=== PATIENT | female | born 1990 | race Two or more races ===

== ENCOUNTER 2016-08-20 02:06 | Emergency (ER) | payer BC ==
[~2016-08-20] VITALS: Ht 162.6 cm; Wt 65.8 kg
[~2016-08-20 02:06] MED LIST: MULTIVITAMINS1 EA14 PO
--- NOTE | 2016-08-20 02:25 | Emergency Room Report ---
History of Present Illness General Chief Complaint: Substance Abuse Source: Patient Present Illness HPI Patient's friend contacted paramedics with reports of overdose on heroin and amphetamine Patient was found to be unresponsive and was given reportedly CPR by the friend Upon arrival of the paramedics patient was awake and responsive No further medication was given and patient brought to the emergency room At this time patient denies any homicidal or suicidal thoughts She reports accidental over ingestion Denies any chest pressures of breath denies any back or flank pain Allergies: Coded Allergies: No Known Allergies (Unverified , 08/20/16) Patient History Past Medical History: see triage record Pertinent Family History: none Last Menstrual Period: 08/18/16 Now: No : 0 Para: 0 Reviewed Nursing Documentation: PMH: Agreed, PSxH: Agreed Nursing Documentation-PMH History Of Psychiatric Problem: Yes - Anxiety, depression, ADHD Review of Systems All Other Systems: negative except mentioned in HPI Physical Exam Vital Signs Date Time Temp Pulse Resp B/P Pulse Ox O2 Delivery O2 Flow Rate FiO2 08/20/16 01:56 99.1 122 15 122/87 96 Room Air Sp02 EP Interpretation: reviewed, normal General Appearance: well appearing, no apparent distress Head: normocephalic, atraumatic Eyes: bilateral eye EOMI, bilateral eye PERRL ENT: hearing grossly normal, normal pharynx, TMs + canals normal, uvula midline Neck: full range of motion, supple, no meningismus, no bony tend Respiratory: lungs clear, normal breath sounds, no rhonchi, no respiratory distress, no retraction, no accessory muscle use Cardiovascular #1: normal peripheral pulses, regular rate, rhythm, no edema, no gallop, no JVD, no murmur Gastrointestinal: normal bowel sounds, non tender, soft, no mass, no organomegaly, non-distended, no guarding, no hernia, no pulsatile mass, no rebound Musculoskeletal: normal inspection Neurologic: oriented x3, responsive, prototype sewer III-XII nml as tested, motor strength/ tone normal, sensory intact Psychiatric: mood/affect normal - And patient denies any homicidal or suicidal thought Skin: normal color, no rash, warm/dry, palpation normal Lymphatic: normal inspection, no adenopathy Medical Decision Making Diagnostic Impression: Primary Impression: Substance abuse Additional Impressions: multidrug overdose Aspiration pneumonia ER Course Patient was observed in the ER Continues to do well Easily arousable Blood work is at baseline levels the patient is positive for multidrug ingestion Patient's friend is also here Patient and the friend continues to deny any homicidal type process and report accidental overdose Chest x-ray reveals questionable increased marking right lower lobe In line with possible aspiration given the patient's presentation She was placed on oral antibiotic Further observation was made patient continues to saturate well respirations are not labored the patient will have initial conservative outpatient trial Labs Test 08/20/16 02:20 White Blood Count 5.6 K/UL (4.8-10.8) Red Blood Count 3.63 M/UL (4.20-5.40) Hemoglobin 11.2 G/DL (12.0-16.0) Hematocrit 32.9 % (37.0-47.0) Mean Corpuscular Volume 91 FL (80-99) Mean Corpuscular Hemoglobin 31.0 PG (27.0-31.0) Mean Corpuscular Hemoglobin Concent 34.2 G/DL (32.0-36.0) Red Cell Distribution Width 10.5 % (11.6-14.8) Platelet Count 232 K/UL (150-450) Mean Platelet Volume 5.7 FL (6.5-10.1) Neutrophils (%) (Auto) 55.9 % (45.0-75.0) Lymphocytes (%) (Auto) 31.1 % (20.0-45.0) Monocytes (%) (Auto) 10.4 % (1.0-10.0) Eosinophils (%) (Auto) 2.0 % (0.0-3.0) Basophils (%) (Auto) 0.6 % (0.0-2.0) Urine HCG, Qualitative Negative Sodium Level 137 mEQ/L (135-145) Potassium Level 4.4 mEQ/L (3.4-4.9) Chloride Level 96 mEQ/L (98-107) Carbon Dioxide Level 28 mEQ/L (20-30) Anion Gap 13 (5-15) Blood Urea Nitrogen 6 mg/dL (7-23) Creatinine 0.7 mg/dL (0.5-0.9) Estimat Glomerular Filtration Rate > 60 mL/min (>60) Glucose Level 97 mg/dL (74-106) Calcium Level 8.7 mg/dL (8.6-10.2) Total Bilirubin < 0.2 mg/dL (0.0-1.2) Aspartate Amino Transf (AST/SGOT) 34 U/L (5-40) Alanine Aminotransferase (ALT/SGPT) 9 U/L (3-33) Alkaline Phosphatase 43 U/L (35-104) Total Protein 6.7 g/dL (6.6-8.7) Albumin 4.2 g/dL (3.5-5.2) Globulin 2.5 g/dL Albumin/Globulin Ratio 1.6 (1.0-2.7) Salicylates Level < 1 mg/dL (10-30) Urine Opiates Screen Positive (NEGATIVE) Acetaminophen Level < 10 ug/mL (10-30) Urine Barbiturates Screen Positive (NEGATIVE) Phencyclidine (PCP) Screen Negative (NEGATIVE) Urine Amphetamines Screen Positive (NEGATIVE) Urine Benzodiazepines Screen Negative (NEGATIVE) Urine Cocaine Screen Negative (NEGATIVE) Urine Marijuana (THC) Screen Positive (NEGATIVE) Serum Alcohol < 10 mg/dL Rhythm Strip Diag. Results EP Interpretation: yes Rate: 88 Rhythm: NSR, no PVC's, no ectopy Chest X-Ray Diagnostic Results EP Interpretation: Yes Findings: no effusion, no pneumothorax, other - Questionable right lower lobe atelectasis versus aspiration Number of Views: 1 Last Vital Signs Date Time Temp Pulse Resp B/P Pulse Ox O2 Delivery O2 Flow Rate FiO2 08/20/16 01:56 99.1 122 15 122/87 96 Room Air Status: improved Disposition: HOME, SELF-CARE Condition: Improved Scripts Levofloxacin* (LEVAQUIN*) 750 Mg Tablet 750 MG ORAL DAILY for 10 Days, TAB Prov: STEPHEN FARAH D.O. 08/20/16 Additional Instructions: Patient is provided with the discharge instructions notified to follow up with primary doctor in the next 2-3 days otherwise return to the er with any worsening symptoms. Please note that this report is being documented using [employer] technology. This can lead to erroneous entry secondary to incorrect interpretation by the dictating instrument. STEPHEN FARAH D.O. August 20, 2016 02:25
[2016-08-20 02:29] VITALS: BP 125/89
[2016-08-20] MEDS ORDERED: GABAPENTIN100 MG ORAL (02:33)
[2016-08-20] MEDS ORDERED: CELEXA20 MG ORAL (02:33)
[2016-08-20] MEDS ORDERED: TRAZODONE HCL150 MG ORAL (02:33)
[2016-08-20] MEDS ORDERED: WELLBUTRIN SR100 MG ORAL (02:33)
[2016-08-20 02:36] LABS: BASOPHILS % (AUTO) 0.6 % (0.0-2.0); LYMPHOCYTES % (AUTO) 31.1 % (20.0-45.0); MEAN CORPUSCULAR HGB CONC 34.2 G/DL (32.0-36.0); MEAN CORPUSCULAR VOLUME 91 FL (80-99); MEAN PLATELET VOLUME 5.7 FL (6.5-10.1); MONOCYTES % (AUTO) 10.4 % (1.0-10.0); NEUTROPHILS % (AUTO) 55.9 % (45.0-75.0); PLATELET COUNT 232 K/UL (150-450); RED BLOOD COUNT 3.63 M/UL (4.20-5.40); RED CELL DISTRIBUTION WIDTH 10.5 % (11.6-14.8); WHITE BLOOD COUNT 5.6 K/UL (4.8-10.8)
[2016-08-20 02:53] LABS: ACETAMINOPHEN < 10 ug/mL (10-30); ALANINE AMINOTRANSFERASE 9 U/L (3-33); ALBUMIN/GLOBULIN RATIO 1.6 (1.0-2.7); ALCOHOL < 10 mg/dL; ANION GAP 13 (5-15); ASPARTATE AMINO TRANSFERASE 34 U/L (5-40); CALCIUM 8.7 mg/dL (8.6-10.2); CARBON DIOXIDE 28 mEQ/L (20-30); CHLORIDE 96 mEQ/L (98-107); CREATININE 0.7 mg/dL (0.5-0.9); GLOMERULAR FILTRATION RATE > 60 mL/min (>60); HEMOLYSIS 3; POTASSIUM 4.4 mEQ/L (3.4-4.9); SODIUM 137 mEQ/L (135-145); TOTAL PROTEIN 6.7 g/dL (6.6-8.7)
[2016-08-20 03:35] VITALS: BP 115/76
[2016-08-20] MEDS ORDERED: Levofloxacin 500mg tab ORAL ONE (05:15)
[2016-08-20] MEDS ORDERED: LEVAQUIN750 MG ORAL (05:20)
[2016-08-20 05:34] VITALS: BP 101/75
--- NOTE | 2016-08-20 10:15 | Diagnostic Imaging Report ---
Indication: SOB Technique: One view of the chest Comparison: none Findings: Lungs and pleural spaces are clear. Heart size is normal. Impression: No acute process
== END 2016-08-20 05:34 | disposition home or self-care (01) ==
LOC: EDBD 02:06 → EMR 03:19
DX: T40.1X1A Poisoning by heroin, accidental (unintentional), initial encounter (principal); T43.621A Poisoning by amphetamines, accidental (unintentional), initial encounter; Y92.89 Other specified places as the place of occurrence of the external cause; J69.0 Pneumonitis due to inhalation of food and vomit
CPT/HCPCS: 36415; 71010; 80053; 80300; 81025; 85025; 96360; 96361; 99284; G0480; 80329

== ENCOUNTER 2016-12-06 10:33 | Inpatient (IN) | payer BC ==
[2016-12-06] VITALS (8 sets, daily range): BP systolic 90–130; BP diastolic 45–82
[~2016-12-06] VITALS: Ht 167.6 cm; Wt 63.5 kg
[~2016-12-06 10:33] MED LIST changes: +CELEXA20 MG ORAL; +GABAPENTIN100 MG ORAL; +LEVAQUIN750 MG ORAL; +TRAZODONE HCL150 MG ORAL; +WELLBUTRIN SR100 MG ORAL
--- NOTE | 2016-12-06 11:05 | Emergency Room Report ---
History of Present Illness General Chief Complaint: Overdose Source: Patient Present Illness HPI 26-year-old female history of substance abuse, coming from her rehabilitation facility for drug overdose. Coordinator called 911 after having found patient injecting herself with heroin in the foot. EMS arrived and patient w respiratory rate 8-9, patient was given 8 mg IM of Narcan with improvement of symptoms. Patient currently denying any suicidal or homicidal ideation. Patient states that she shot heroin and took a couple pills of gabapentin to get high. Denying any pain at this time Patient also states that she has been having mild diarrhea, watery, non bloody, non melanotic for the past 2 weeks. denies any abd pain In ED patient noted to have 2 episodes of coffee ground emesis. pt denes any hx of this. not on blood thinners Allergies: Coded Allergies: No Known Allergies (Unverified , 08/20/16) Patient History Past Medical History: see triage record Past Surgical History: none Pertinent Family History: none Reviewed Nursing Documentation: PMH: Agreed, PSxH: Agreed Nursing Documentation-PMH History Of Psychiatric Problem: Yes - DRUG ABUSE Review of Systems All Other Systems: negative except mentioned in HPI Physical Exam Vital Signs Date Time Temp Pulse Resp B/P (MAP) Pulse Ox O2 Delivery O2 Flow Rate FiO2 12/06/16 10:32 98.4 100 18 136/62 99 Room Air Sp02 EP Interpretation: reviewed, normal General Appearance: alert, GCS 15, non-toxic, other - Young female, appears fatigued, slightly lethargic however oriented x3 and following all commands. Conversing appropriately. Not diaphoretic, not in pain Head: normocephalic, atraumatic Eyes: bilateral eye normal inspection, bilateral eye PERRL, bilateral eye EOMI ENT: normal ENT inspection, normal pharynx, normal voice, moist mucus membranes Neck: normal inspection, full range of motion, supple Respiratory: normal inspection, lungs clear, normal breath sounds, no respiratory distress, no retraction, no wheezing, speaking full sentences, other - Satting 100% on room air. Normal respiratory rate, chest symmetrical Cardiovascular #1: normal inspection, regular rate, rhythm, no edema, normal capillary refill Cardiovascular #2: 2+ radial (R), 2+ radial (L) Gastrointestinal: normal inspection, non tender, soft, non-distended, no guarding Musculoskeletal: normal inspection, back normal, normal range of motion, non- tender, other - Track loja noted on bilateral antecubital fossa , and right foot Neurologic: normal inspection, oriented x3, responsive, motor strength/tone normal, sensory intact, speech normal Psychiatric: normal inspection, memory normal, no suicidal/homicidal ideation, no delusions Skin: normal inspection, normal color, no rash, warm/dry, well hydrated, normal turgor Procedures Critical Care Time Critical Care Time 40 minutes of CC time 26YO FEMALE, drug overdose, upper GI bleeding VS: Stable Airway patent. Not hypoxic. PLAN: IV access, labs, poison control consult, Narcan when necessary, Protonix, IV fluids ICU CC time also includes review of labs, speaking with poison control, speaking with patient's friend, speaking with EMS d/w hospitalist CC could include dosing of pressors, additional Abx CC time does not include procedures Medical Decision Making Diagnostic Impression: Primary Impression: Drug overdose Additional Impressions: Upper GI bleed Nausea & vomiting ER Course 26 yo female with drug overdose, and vomiting DDX: heroin and gabapentin overdose Also with nausea vomiting and coffee-ground emesis--upper GI bleed: Gastritis, esophagitis, peptic ulcer disease Plan: Obtain labs, ua, EKG, CXR Narcan was given by EMS with resolution of her dyspnea, will give PRN upper gi bleed: nexium, fluids ER course: Patient has been monitored during ED stay, HD stable Patient had 2 episodes of coffee-ground emesis in the emergency room. Patient was given Nexium and fluids. She remained awake and alert, no hypoxia, no respiratory depression. Poison control was consulted for the gabapentin overdose, reported that she did not take a lethal dose, and to provide supportive care Disposition: Patient requires inpatient admission to the ICU for upper GI bleeding. I discussed with Dr. lovett and Dr. kunz Please note that this Emergency Department Report was dictated using [employer] technology software, occasionally this can lead to erroneous entry secondary to interpretation by the dictation equipment. Laboratory Tests Test 12/06/16 10:47 12/06/16 10:50 12/06/16 12:50 White Blood Count 6.9 K/UL (4.8-10.8) Red Blood Count 4.18 M/UL (4.20-5.40) L Hemoglobin 13.0 G/DL (12.0-16.0) Hematocrit 38.6 % (37.0-47.0) Mean Corpuscular Volume 92 FL (80-99) Mean Corpuscular Hemoglobin 31.2 PG (27.0-31.0) H Mean Corpuscular Hemoglobin Concent 33.8 G/DL (32.0-36.0) Red Cell Distribution Width 10.8 % (11.6-14.8) L Platelet Count 274 K/UL (150-450) Mean Platelet Volume 6.2 FL (6.5-10.1) L Neutrophils (%) (Auto) 75.6 % (45.0-75.0) H Lymphocytes (%) (Auto) 14.4 % (20.0-45.0) L Monocytes (%) (Auto) 8.9 % (1.0-10.0) Eosinophils (%) (Auto) 0.2 % (0.0-3.0) Basophils (%) (Auto) 0.9 % (0.0-2.0) Sodium Level 135 mEQ/L (135-145) Potassium Level 5.3 mEQ/L (3.4-4.9) H Chloride Level 96 mEQ/L (98-107) L Carbon Dioxide Level 28 mEQ/L (20-30) Anion Gap 11 (5-15) Blood Urea Nitrogen 11 mg/dL (7-23) Creatinine 1.1 mg/dL (0.5-0.9) H Estimate Glomerular Filtration Rate > 60 mL/min (>60) Glucose Level 107 mg/dL (74-106) H Calcium Level 9.7 mg/dL (8.6-10.2) Total Bilirubin 0.2 mg/dL (0.0-1.2) Aspartate Amino Transferase (AST) 31 U/L (5-40) Alanine Aminotransferase (ALT) 9 U/L (3-33) Alkaline Phosphatase 54 U/L (35-104) Total Protein 8.5 g/dL (6.6-8.7) Albumin 5.1 g/dL (3.5-5.2) Globulin 3.4 g/dL Albumin/Globulin Ratio 1.5 (1.0-2.7) Salicylates Level < 1 mg/dL (10-30) L Acetaminophen Level < 10 ug/mL (10-30) L Serum Alcohol < 10 mg/dL Urine Color Pale yellow Urine Appearance Turbid Urine pH 6.5 (4.5-8.0) Urine Specific [place] 1.015 (1.005-1.035) Urine Protein 1+ (NEGATIVE) H Urine Glucose (UA) Negative (NEGATIVE) Urine Ketones Negative (NEGATIVE) Urine Occult Blood 2+ (NEGATIVE) H Urine Nitrite Negative (NEGATIVE) Urine Bilirubin Negative (NEGATIVE) Urine Urobilinogen Normal MG/DL (0.0-1.0) Urine Leukocyte Esterase 1+ (NEGATIVE) H Urine RBC 2-4 /HPF (0 - 2) H Urine WBC 2-4 /HPF (0 - 2) Urine Squamous Epithelial Cells Many /LPF (NONE/OCC) H Urine Bacteria Few /HPF (NONE) Urine HCG, Qualitative Negative Urine Opiates Screen Positive (NEGATIVE) H Urine Barbiturates Screen Negative (NEGATIVE) Phencyclidine (PCP) Screen Negative (NEGATIVE) Urine Amphetamines Screen Negative (NEGATIVE) Urine Benzodiazepines Screen Negative (NEGATIVE) Urine Cocaine Screen Negative (NEGATIVE) Urine Marijuana (THC) Screen Negative (NEGATIVE) Prothrombin Time 10.2 SEC (9.30-11.50) Prothrombin Time INR 1.0 (0.9-1.1) PTT 23 SEC (23-33) EKG Diagnostic Results Rate: normal Rhythm: NSR ST Segments: no acute changes Rhythm Strip Diag. Results EP Interpretation: yes Rate: 90 Rhythm: NSR, no PVC's, no ectopy Chest X-Ray Diagnostic Results Chest X-Ray Diagnostic Results : Chest X-Ray Ordered: Yes # of Views/Limited/Complete: 1 View Indication: Other EP Interpretation: Yes Interpretation: no consolidation, no effusion, no pneumothorax, no acute cardiopulmonary disease Impression: No acute disease Electronically Signed by: Electronically signed by Jewell Bolton MD Last Vital Signs Date Time Temp Pulse Resp B/P (MAP) Pulse Ox O2 Delivery O2 Flow Rate FiO2 12/06/16 10:45 94 12 Room Air 12/06/16 10:40 97.0 117/58 99 Disposition: ADMITTED INPATIENT Condition: Critical Jewell Bolton M.D. Dec 06, 2016 11:05
[2016-12-06 11:20] LABS: BASOPHILS % (AUTO) 0.9 % (0.0-2.0); EOSINOPHILS % (AUTO) 0.2 % (0.0-3.0); LYMPHOCYTES % (AUTO) 14.4 % (20.0-45.0); MEAN CORPUSCULAR HEMOGLOBIN 31.2 PG (27.0-31.0); MEAN CORPUSCULAR HGB CONC 33.8 G/DL (32.0-36.0); MEAN CORPUSCULAR VOLUME 92 FL (80-99); MEAN PLATELET VOLUME 6.2 FL (6.5-10.1); MONOCYTES % (AUTO) 8.9 % (1.0-10.0); NEUTROPHILS % (AUTO) 75.6 % (45.0-75.0); PLATELET COUNT 274 K/UL (150-450); RED BLOOD COUNT 4.18 M/UL (4.20-5.40); RED CELL DISTRIBUTION WIDTH 10.8 % (11.6-14.8); WHITE BLOOD COUNT 6.9 K/UL (4.8-10.8)
[2016-12-06 11:27] LABS: ACETAMINOPHEN < 10 ug/mL (10-30); ALANINE AMINOTRANSFERASE 9 U/L (3-33); ALBUMIN/GLOBULIN RATIO 1.5 (1.0-2.7); ALCOHOL < 10 mg/dL; ANION GAP 11 (5-15); ASPARTATE AMINO TRANSFERASE 31 U/L (5-40); CALCIUM 9.7 mg/dL (8.6-10.2); CARBON DIOXIDE 28 mEQ/L (20-30); CHLORIDE 96 mEQ/L (98-107); CREATININE 1.1 mg/dL (0.5-0.9); GLOMERULAR FILTRATION RATE > 60 mL/min (>60); HEMOLYSIS 98; POTASSIUM 5.3 mEQ/L (3.4-4.9); SODIUM 135 mEQ/L (135-145); TOTAL PROTEIN 8.5 g/dL (6.6-8.7)
[2016-12-06 11:41] LABS: APPEARANCE,URINE TURBID; KETONES,URINE NEGATIVE (NEGATIVE); LEUKOCYTE ESTERASE ,URINE 1+ (NEGATIVE); NITRITE,URINE NEGATIVE (NEGATIVE); PH,URINE 6.5 (4.5-8.0); PROTEIN,URINE 1+ (NEGATIVE); UROBILINOGEN,URINE NORMAL MG/DL (0.0-1.0)
[2016-12-06 12:04] LABS: BACTERIA,URINE FEW /HPF; SQUAMOUS EPITHELIAL CELL,UR MANY /LPF (NONE/OCC)
[2016-12-06] MEDS ORDERED: Esomeprazole sodium 40mg vial IVP ONE (12:45)
[2016-12-06] MEDS ORDERED: STRATTERA80 MG PO (12:56)
[2016-12-06] MEDS ORDERED: LYRICA300 MG ORAL (12:57)
[2016-12-06 13:19] LABS: PROTHROMBIN TIME 10.2 SEC (9.30-11.50)
--- NOTE | 2016-12-06 14:28 | Diagnostic Imaging Report ---
Indication: PAIN Technique: One view of the chest Comparison: 08/21/2016 Findings: Lungs and pleural spaces are clear. Heart size is normal. No significant change Impression: No acute process
[2016-12-06] MEDS ORDERED: Nitroglycerin Subl 0.4mg tab (Bottle Of 25) SL PRN (14:45)
[2016-12-06] MEDS ORDERED: Miralax 17gm pkt ORAL PRN (14:45)
[2016-12-06] MEDS ORDERED: Morphine Sulfate 2mg/ml Inj IVP PRN (14:45)
[2016-12-06] MEDS ORDERED: Mylanta II UD 30ml ORAL PRN (14:45)
[2016-12-06] MEDS ORDERED: D5NS 1,000 ML IV SCH (15:30)
--- NOTE | 2016-12-06 19:12 | Pulmonolgy Critical Care Note ---
Critical Care - Asmt/Plan Problems: (1) Upper GI bleed (2) Drug overdose (3) Nausea & vomiting (4) Substance abuse Respiratory: monitor respiratory rate, adjust FIO2, CXR Cardiac: continue to monitor HR/BP Renal: F/U I&O, keep IV fluid Infectious Disease: check cultures Gastrointestinal: hold feedings, abdominal imaging Endocrine: monitor blood sugar, continue sliding scale insulin Hematologic: monitor H/H, transfuse if hgb<8.5 Neurologic: PRN Ativan, PRN Morphine, keep patient comfortable Prophylaxis: Protonix, Heparin Notes Reviewed: hired worker, cardio, renal Discussed with: nurses, consultants, case linercommunity service manager - Objective Last 24 Hour Vital Signs Date Time Temp Pulse Resp B/P (MAP) Pulse Ox O2 Delivery O2 Flow Rate FiO2 12/06/16 18:00 85 20 102/50 100 Nasal Cannula 2.0 12/06/16 17:00 84 20 90/45 100 Nasal Cannula 2.0 12/06/16 16:00 98.1 87 16 102/67 100 Nasal Cannula 2.0 12/06/16 16:00 84 12/06/16 15:55 83 14 101/66 99 Room Air 12/06/16 15:13 93 15 100/78 99 Nasal Cannula 2.0 12/06/16 14:00 98.0 98 16 109/72 99 Room Air 12/06/16 12:58 93 12 115/59 99 Room Air 12/06/16 11:30 97.0 95 16 130/82 99 Room Air 12/06/16 10:45 94 12 Room Air 12/06/16 10:40 97.0 94 12 117/58 99 Room Air 12/06/16 10:32 98.4 100 18 136/62 99 Room Air Status: awake Condition: critical, grave HEENT: atraumatic Abdomen: soft, non-tender Extremities: edema Accucheck: 95 Critical Care - Subjective ROS Limited/Unobtainable: No ICU Day: 1 Interval Events: pt admitted with overdose then had ugi bleeding to ICU, now she want to sign out ama. Condition: critical Sputum Amount: None I&O: Intake and Output 12/06/16 12/07/16 19:00 07:00 Output Total 200 ml Balance -200 ml Output Urine Total 200 ml # Voids 2 CXR: negartive Labs: Laboratory Tests Test 12/06/16 10:47 12/06/16 10:50 12/06/16 12:50 White Blood Count 6.9 K/UL (4.8-10.8) Red Blood Count 4.18 M/UL (4.20-5.40) L Hemoglobin 13.0 G/DL (12.0-16.0) Hematocrit 38.6 % (37.0-47.0) Mean Corpuscular Volume 92 FL (80-99) Mean Corpuscular Hemoglobin 31.2 PG (27.0-31.0) H Mean Corpuscular Hemoglobin Concent 33.8 G/DL (32.0-36.0) Red Cell Distribution Width 10.8 % (11.6-14.8) L Platelet Count 274 K/UL (150-450) Mean Platelet Volume 6.2 FL (6.5-10.1) L Neutrophils (%) (Auto) 75.6 % (45.0-75.0) H Lymphocytes (%) (Auto) 14.4 % (20.0-45.0) L Monocytes (%) (Auto) 8.9 % (1.0-10.0) Eosinophils (%) (Auto) 0.2 % (0.0-3.0) Basophils (%) (Auto) 0.9 % (0.0-2.0) Sodium Level 135 mEQ/L (135-145) Potassium Level 5.3 mEQ/L (3.4-4.9) H Chloride Level 96 mEQ/L (98-107) L Carbon Dioxide Level 28 mEQ/L (20-30) Anion Gap 11 (5-15) Blood Urea Nitrogen 11 mg/dL (7-23) Creatinine 1.1 mg/dL (0.5-0.9) H Estimat Glomerular Filtration Rate > 60 mL/min (>60) Glucose Level 107 mg/dL (74-106) H Calcium Level 9.7 mg/dL (8.6-10.2) Total Bilirubin 0.2 mg/dL (0.0-1.2) Aspartate Amino Transf (AST/SGOT) 31 U/L (5-40) Alanine Aminotransferase (ALT/SGPT) 9 U/L (3-33) Alkaline Phosphatase 54 U/L (35-104) Total Protein 8.5 g/dL (6.6-8.7) Albumin 5.1 g/dL (3.5-5.2) Globulin 3.4 g/dL Albumin/Globulin Ratio 1.5 (1.0-2.7) Salicylates Level < 1 mg/dL (10-30) L Acetaminophen Level < 10 ug/mL (10-30) L Serum Alcohol < 10 mg/dL Urine Color Pale yellow Urine Appearance Turbid Urine pH 6.5 (4.5-8.0) Urine Specific [place] 1.015 (1.005-1.035) Urine Protein 1+ (NEGATIVE) H Urine Glucose (UA) Negative (NEGATIVE) Urine Ketones Negative (NEGATIVE) Urine Occult Blood 2+ (NEGATIVE) H Urine Nitrite Negative (NEGATIVE) Urine Bilirubin Negative (NEGATIVE) Urine Urobilinogen Normal MG/DL (0.0-1.0) Urine Leukocyte Esterase 1+ (NEGATIVE) H Urine RBC 2-4 /HPF (0 - 2) H Urine WBC 2-4 /HPF (0 - 2) Urine Squamous Epithelial Cells Many /LPF (NONE/OCC) H Urine Bacteria Few /HPF (NONE) Urine HCG, Qualitative Negative Urine Opiates Screen Positive (NEGATIVE) H Urine Barbiturates Screen Negative (NEGATIVE) Phencyclidine (PCP) Screen Negative (NEGATIVE) Urine Amphetamines Screen Negative (NEGATIVE) Urine Benzodiazepines Screen Negative (NEGATIVE) Urine Cocaine Screen Negative (NEGATIVE) Urine Marijuana (THC) Screen Negative (NEGATIVE) Prothrombin Time 10.2 SEC (9.30-11.50) Prothromb Time International Ratio 1.0 (0.9-1.1) Activated Partial Thromboplast Time 23 SEC (23-33) TOM BOB Dec 06, 2016 19:12
[2016-12-06] MEDS ORDERED: D5NS 1000ml IV ONE (19:29)
--- NOTE | 2016-12-06 19:29 | History & Physical ---
History and Physical History & Physicial Dictated for Int Med-Dr Hdez ICU no. [id number]. MIROSLAVA AUSTIN Dec 06, 2016 19:29
[2016-12-06] MEDS ORDERED: TraZODone 100mg tab ORAL SCH (21:00)
--- NOTE | 2016-12-06 22:45 | History and Physical Report ---
DATE OF ADMISSION: 12/06/2016 CHIEF COMPLAINT: The patient is a 26-year-old white female, who presents with chief complaint of overdose. HISTORY OF PRESENT ILLNESS: The patient is resident of a rehabilitation facility. Apparently, the patient was injecting heroin in the rehab. The patient was found to be unresponsive. EMS was called. The patient was given Narcan in the field. The patient's symptoms resolved. The patient is admitted for intentional overdose of heroin. Of note, the patient is uncooperative with the history and physical. REVIEW OF SYSTEMS: Constitutional: The patient denies weight loss or gain. The patient denies fevers or chills. HEENT: The patient denies ear or throat pain. The patient denies headache. Cardiovascular: The patient denies palpitations or chest pain. Chest: The patient denies wheeze or shortness of breath. Abdomen: The patient denies nausea, vomiting, diarrhea, or constipation. Genitourinary: The patient denies dysuria or increased frequency of urination. Neuromuscular: The patient denies seizures or generalized weakness. PAST MEDICAL HISTORY: Significant for opiate dependence as above. PAST SURGICAL HISTORY: The patient denies. CURRENT MEDICATIONS: The patient denies. ALLERGIES: No known drug allergies. SOCIAL HISTORY: The patient is a resident of an unknown rehabilitation. The patient admits to tobacco use one pack per day. The patient admits to heroin use as above. The patient denies other drugs abuse. PHYSICAL EXAMINATION: VITAL SIGNS: Temperature 98.0, respirations 16, pulse 90, and blood pressure 109/72. GENERAL: The patient is a well-developed and well-nourished white female, in no apparent distress. HEENT: Eyes, pupils are equal and responsive to light and accommodation. Extraocular movements are intact. NECK: Supple without lymphadenopathy. CHEST: Lungs are clear to auscultation bilaterally without wheezes or rales. CARDIOVASCULAR: Regular rhythm and rate. S1 and S2 normal without murmurs, rubs, or gallops. ABDOMEN: Soft, nontender, and nondistended. Positive bowel sounds. No evidence of hepatosplenomegaly. Currently, no rebound or guarding noted. EXTREMITIES: Negative for clubbing, cyanosis, or edema. RECTAL/GENITAL: Refused. NEUROLOGIC: Cranial nerves II through XII are grossly intact without focal deficits. Motor strength is 5/5 bilaterally. Deep tendon reflexes are 2+ plantar. LABORATORY STUDIES: WBC 6.9, hemoglobin 13.0, hematocrit 38.6, and platelets 234,000. Sodium 135, potassium 5.3, chloride , CO2 20, BUN 11, and creatinine 1.1. Glucose 107. Urinalysis showed 1+ leukocyte esterase with 2 to 4 wbc's. Urine toxicology was positive for opiates. ASSESSMENT: This is a 26-year-old white female with: 1. Unintentional overdose of heroin. 2. Opiate dependence. TREATMENT: Unintentional overdose. The patient has received Narcan in the field. The patient is currently admitted to the intensive care unit. The patient is being uncooperative and is threatening to leave against medical advice at this time. Nguyễn Solares M.D. DR: ROBYN JOB#: [id number] CC:
[2016-12-07] MEDS ORDERED: Citalopram 20mg Tab ORAL SCH (09:00)
[2016-12-07] MEDS ORDERED: BuPROPion SR 100mg tab ORAL SCH (09:00)
--- NOTE | 2016-12-07 15:25 | Discharge Summary ---
Discharge Summary Hospital Course Date of Admission Dec 06, 2016 at 13:50 Date of Discharge Dec 06, 2016 at 19:30 Admitting Diagnosis upper gi bleed/overdose HPI Lorelei Paige is a 26 year old female who was admitted on Dec 06, 2016 at 13: 50 for Upper Gastrointestinal Bleed/Overdose Hospital Course [id number] Discharge Discharge Disposition Patient left AMA Discharge Diagnoses: Callie Phillip NP Dec 07, 2016 15:25
--- NOTE | 2016-12-08 22:15 | Discharge Summary 2 SIG ---
DATE OF ADMISSION: 12/06/2016 DATE OF DISCHARGE: 12/06/2016 NOTE: AUDIO CUTS SCRAP KETTLE TENDER: Roderick Liao M.D. BRIEF HOSPITAL COURSE: who is a resident of the rehabilitation facility. She has history of substance abuse and was found to be injecting heroin at the facility, 911 was called and the patient was taken to ED. On arrival, respiratory rate was 8-9. She was given Narcan IM with improvement of . She denied any suicidal or homicidal ideation and has been having watery diarrhea, but nonbloody. In the ED, she was noted to have two episodes of coffee-ground emesis. She admitted to taking heroin and . She remained awake and alert post Narcan administration. Poison control was consulted for gabapentin overdose. The patient did not take . She was then admitted to ICU. Chest x-ray done showed no acute cardiopulmonary disease. EKG was in normal sinus rhythm. The patient was uncooperative and abusive to the staff. Full treatment was not carried out, as the patient left against medical advice. FINAL DIAGNOSES: 1. Drug overdose. 2. Opiate dependence. DISPOSITION: The patient left against medical advice. Nguyễn Solares M.D. I have been assigned to dictate discharge summary on this account and I was not involved in the patient's management. Callie Phillip N.P. DR: NURA JOB#: [id number] CC:
--- NOTE | 2016-12-10 18:48 | Cardiology Report ---
APPROVED REPORT EKG Measurement Heart [id number] [place] [id number] Normal sinus rhythm Rightward axis Borderline ECG
== END 2016-12-06 19:30 | disposition left against medical advice (07) | DRG 918 ==
LOC: EDBD 10:33 → EMR 11:37 → ICU 13:50 → EDBEDREQ 14:00 → EDBEDREQSVC 14:06 → EDBEDREQ 14:24
DX: T40.1X1A Poisoning by heroin, accidental (unintentional), initial encounter (principal); F11.20 Opioid dependence, uncomplicated; K92.2 Gastrointestinal hemorrhage, unspecified; R41.82 Altered mental status, unspecified; Y92.89 Other specified places as the place of occurrence of the external cause; R11.2 Nausea with vomiting, unspecified
CPT/HCPCS: 36415; 71010; 80053; 80300; 80329; 81003; 81025; 82962; 85025; 85610; 85730; 86850; 86900; 86901; 86920; 87081; 93005; 99285; J2405